=== PATIENT | male | born 1935 | race Hispanic/Latino ===

== ENCOUNTER 2017-11-09 09:49 | Emergency (ER) | payer OTHER ==
[2017-11-09 09:56] VITALS: TEMP 98.6; BMI 18.1
[2017-11-09] MEDS ORDERED: Morphine 2 mg/ml ISec IVP STA ×2 (10:07→11:53)
--- NOTE | 2017-11-09 11:27 | ED PDOC ---
Arrival/HPI - General Chief Complaint: Trauma Time Seen by Provider: 11/09/17 10:00 Historian: Patient - History of Present Illness Narrative History of Present Illness (Text): 11/09/17 11:00 82 male, with no significant PMH, who presents to the emergency department complaining of right shoulder pain s/p mechanical fall since prior to arrival. Patient reports coming out off cruise and as he was pulling his luggage, patient fell forward, with outstretched arm injuring his right shoulder. Patient notes hitting his head and has a small right eyebrow cut. Patient denies LOC, headache, chest pain, shortness of breath, nausea, vomiting, diarrhea, numbness or tingling to the extremities. Pt denies neck or back pain. Additionally, patient notes right shoulder pain being 10 out 10 and radiating down right arm. Time/Duration: Prior to Arrival Symptom Onset: Sudden Symptom Course: Unchanged Context: Slipped Past Medical History - Provider Review Nursing Documentation Reviewed: Yes - Infectious Disease Hx of Infectious Diseases: None - Psychiatric Hx Substance Use: No - Surgical History Hx Orthopedic Surgery: Yes (hip replacement) - Anesthesia Hx Anesthesia: Yes Hx Anesthesia Reactions: No Hx Malignant Hyperthermia: No Family/Social History - Physician Review Nursing Documentation Reviewed: Yes Family/Social History: Unknown Family HX Smoking Status: Never Smoked Hx Alcohol Use: Yes Frequency of alcohol use: Socially Hx Substance Use: No Allergies/Home Meds Allergies/Adverse Reactions: Allergies No Known Allergies Allergy (Verified 11/09/17 10:06) Home Medications: Home Meds Medication Instructions Recorded Confirmed No Known Home Med 11/09/17 11/09/17 Review of Systems - Review of Systems Constitutional: absent: Fevers ENT: absent: Sinus Congestion Respiratory: absent: SOB, Cough Cardiovascular: absent: Chest Pain, Palpitations Gastrointestinal: absent: Abdominal Pain, Diarrhea, Nausea, Vomiting Genitourinary Male: absent: Dysuria, Urinary Output Changes Musculoskeletal: Other (right shoulder pain ). absent: Back Pain, Neck Pain Skin: Laceration. absent: Rash, Pruritis Neurological: absent: Headache, Dizziness, Gait Changes, Speech Changes Psychiatric: absent: Anxiety, Depression Physical Exam Vital Signs Reviewed: Yes Vital Signs Temp Pulse Resp BP Pulse Ox 11/09/17 12:43 64 18 178/77 H 100 11/09/17 09:52 98.6 F 62 16 178/84 H 99 11/09/17 09:50 97.8 F 62 18 174/100 H 100 Temperature: Afebrile Blood Pressure: Hypertensive Pulse: Regular Respiratory Rate: Normal Appearance: Positive for: Well-Appearing, Non-Toxic, Uncomfortable Pain Distress: None Mental Status: Positive for: Alert and Oriented X 3 - Systems Exam Head: Present: Atraumatic, Normocephalic, Laceration (small 1cm linear superficial laceration lateral aspect right eyebrow.no creptus no step offs. ) Pupils: Present: PERRL Extroacular Muscles: Present: EOMI Conjunctiva: Present: Normal Mouth: Present: Moist Mucous Membranes Neck: Present: Normal Range of Motion, Trachea Midline. No: MIDLINE TENDERNESS , Paraspinal Tenderness Respiratory/Chest: Present: Clear to Auscultation, Good Air Exchange. No: Respiratory Distress, Accessory Muscle Use, Wheezes, Decreased Breath Sounds, Rales, Retracting, Rhonchi Cardiovascular: Present: Regular Rate and Rhythm, Normal S1, S2. No: Murmurs Abdomen: Present: Normal Bowel Sounds. No: Tenderness, Distention, Peritoneal Signs, Rebound, Guarding Back: Present: Normal Inspection. No: Midline Tenderness, Paraspinal Tenderness Upper Extremity: Present: NORMAL PULSES, Tenderness, Neurovascularly Intact, Capillary Refill < 2s, Deformity (right shoulder ), Other (no tenderness on humerus or forearm). No: Edema, Normal ROM (limited ROM right shoulder ), Swelling Lower Extremity: Present: Normal Inspection, Normal ROM. No: Tenderness Neurological: Present: GCS=15, Speech Normal, Gait Normal Skin: Present: Warm, Dry, Normal Color Psychiatric: Present: Alert, Oriented x 3, Normal Insight, Normal Concentration Medical Decision Making ED Course and Treatment: 11/09/17 11:33 82 y/o male with deformity on right shoulder with limited ROM and 1cm laceration on lateral aspect of right eyebrow complaining of right shoulder pain s/p mechanical fall. Plan: -- CT head -- Morphine and Zofran -- Right shoulder x-ray -- Reassess and disposition Progress Notes: pt refused cervical spine Ct and head ct. xray right shoulder; FINDINGS: There is a complete anterior inferior dislocation of the humeral head. There is no evidence of fracture IMPRESSION: Right shoulder dislocation tetanus updated Wound cleaned and irrigated using high-pressure irrigation Laceration repair with Dermabond pt now agrees to head ct. head CT; FINDINGS: HEMORRHAGE: No intracranial hemorrhage. BRAIN: No mass effect or edema. Chronic microvascular changes are seen in the periventricular white matter. No acute findings VENTRICLES: Unremarkable. No hydrocephalus. CALVARIUM: Unremarkable. PARANASAL SINUSES: Unremarkable as visualized. No significant inflammatory changes. MASTOID AIR CELLS: Unremarkable as visualized. No inflammatory changes. OTHER FINDINGS: None. IMPRESSION: No acute findings case discussed with dr. dubose; wants consult with dr. glez. case discussed with dr. glez; he will come to bedside. 11/09/17 12:11 dr. glez at bedside; shoulder reduction performed. sling applied. reduction xrays; FINDINGS: There has been successful reduction of the right shoulder dislocation. The shoulder is in normal position. There is no fracture IMPRESSION: Successful reduction Patient reassessment: Patient is feeling better. Denies any pain in the shoulder. Denies numbness weakness or tingling in the extremities. Patient was advised to follow-up with his primary care physician follow-up with the orthopedist within the next 2 days. Patient was advised to keep the wound clean and dry. Patient was advised to return if signs of head injury develop or if signs of infection develop. Patient was advised to return if any other concerning symptoms develop Patient verbalizes understanding of discharge instructions and need for immediate followup. all aspects of this case were discussed the attending of record. impression; laceration, face, head injury, shoulder dislocation Increase fluids Follow up with the orthopedist within the next 2 days Use shoulder immobilizer Return immediately if symptoms worsen,persist or if new symptoms develop Return immediately if signs of head injury develop: headaches, dizziness, weakness or changes in behavior or mental status Return immediately if signs of infection develop: High fevers, increasing redness, increasing swelling, purulent discharge or if any other concerning symptoms develop. Reassessment Condition: Re-examined, Improved - RAD Interpretation Radiology Orders: 11/09/17 10:06 SHOULDER RIGHT [RAD] Stat 11/09/17 11:08 HEAD W/O CONTRAST [CT] Stat 11/09/17 12:18 SHOULDER RIGHT [RAD] Stat Aircraft Dispatcher: Radiologist - Medication Orders Current Medication Orders: Discontinued Medications Morphine Sulfate (Morphine) 1 mg IVP STAT STA Stop: 11/09/17 10:08 Last Admin: 11/09/17 10:31 Dose: 1 mg MAR Pain Assessment Document 11/09/17 10:31 GMD (Rec: 11/09/17 10:31 GMD [id number]) Pain Reassessment Is this a pain reassessment? No IVP Administration Document 11/09/17 10:31 GMD (Rec: 11/09/17 10:31 GMD [id number]) Charges for Administration # of IVP Administrations 1 Morphine Sulfate (Morphine) 2 mg IVP STAT STA Stop: 11/09/17 11:54 Last Admin: 11/09/17 12:36 Dose: Not Given Non-Admin Reason: Patient Refused Ondansetron HCl (Zofran Inj) 4 mg IVP STAT STA Stop: 11/09/17 10:08 Last Admin: 11/09/17 10:31 Dose: 4 mg IVP Administration Document 11/09/17 10:31 GMD (Rec: 11/09/17 10:31 GMD [id number]) Charges for Administration # of IVP Administrations 1 Tetanus/Reduced Diphtheria/Acell Pertussis (Boostrix Vaccine Inj) 0.5 ml IM .ONCE ONE Stop: 11/09/17 11:54 Last Admin: 11/09/17 12:54 Dose: 0.5 ml Immunization Registry Document 11/09/17 12:54 GMD (Rec: 11/09/17 12:54 GMD [id number]) Immunization Registry Consent Date 11/09/17 Procedure: Wound Repair - Procedure Procedure: Wound Repair: laceration, lateral aspect of right eyebrow - Performed by Performed by: Mid-level Provider - Indications Indication(s):: Laceration - Location Shape:: Linear (1cm) Depth:: Epidermis - Debris Debris:: None - Irrigated Irrigated with ml of normal saline: copious amounts of NS using high pressure irrigation - Complexity Complexity:: Simple (one layer) - Wound repair method Tisha:: Tissue glue - Complications Complications: none - Patient tolerated procedure Patient Tolerated Procedure:: Well - Scribe Statement The provider has reviewed the documentation as recorded by the Scribe Soumya Rose Provider Scribe Attestation: All medical record entries made by the Scribe were at my direction and personally dictated by me. I have reviewed the chart and agree that the record accurately reflects my personal performance of the history, physical exam, medical decision making, and the department course for this patient. I have also personally directed, reviewed, and agree with the discharge instructions and disposition. Disposition/Present on Arrival - Present on Arrival Any Indicators Present on Arrival: No History of DVT/PE: No History of Uncontrolled Diabetes: No Urinary Catheter: No History of Decub. Ulcer: No History Surgical Site Infection Following: None - Disposition Have Diagnosis and Disposition been Completed?: Yes Diagnosis: Head injury, Shoulder dislocation, Laceration of face Disposition: HOME/ ROUTINE Disposition Time: 12:58 Patient Plan: Discharge Condition: GOOD Discharge Instructions (ExitCare): Shoulder Dislocation, Laceration Repair With Glue (DC), Closed Head Injury (DC) Additional Instructions: Increase fluids Follow up with the orthopedist within the next 2 days Use shoulder immobilizer Return immediately if symptoms worsen,persist or if new symptoms develop Return immediately if signs of head injury develop: headaches, dizziness, weakness or changes in behavior or mental status Return immediately if signs of infection develop: High fevers, increasing redness, increasing swelling, purulent discharge `` ` Referrals: Nacho Glez DO [Staff Provider] - Follow up with primary Mari Camacho MD [Staff Provider] - Follow up with primary [facility] [Outside] - Follow up with primary Forms: [employer] ([employer])
[2017-11-09] MEDS ORDERED: TDAP Vaccine 0.5 mL Syr IM ONE (11:53)
[2017-11-09] MEDS ORDERED: Lidocaine 1% Inj (20ml) ONE (12:05)
--- NOTE | 2017-11-09 12:12 | CT ---
Date of service: 11/09/2017 PROCEDURE: CT HEAD WITHOUT CONTRAST. HISTORY: head injury COMPARISON: None available. TECHNIQUE: Axial computed tomography images were obtained through the head/brain without intravenous contrast. Radiation dose: Total exam DLP = 805 mGy-cm. This CT exam was performed using one or more of the following dose reduction techniques: Automated exposure control, adjustment of the mA and/or kV according to patient size, and/or use of iterative reconstruction technique. FINDINGS: HEMORRHAGE: No intracranial hemorrhage. BRAIN: No mass effect or edema. Chronic microvascular changes are seen in the periventricular white matter. No acute findings VENTRICLES: Unremarkable. No hydrocephalus. CALVARIUM: Unremarkable. PARANASAL SINUSES: Unremarkable as visualized. No significant inflammatory changes. MASTOID AIR CELLS: Unremarkable as visualized. No inflammatory changes. OTHER FINDINGS: None. IMPRESSION: No acute findings
--- NOTE | 2017-11-09 12:39 | RAD ---
Date of service: 11/09/2017 PROCEDURE: Right shoulder HISTORY: shoulder pain/ fall COMPARISON: TECHNIQUE: Three views FINDINGS: There is a complete anterior inferior dislocation of the humeral head. There is no evidence of fracture IMPRESSION: Right shoulder dislocation
[2017-11-09 12:43] VITALS: BP 178/77; PULSE 64; RESP 18; O2SAT 100
--- NOTE | 2017-11-09 12:45 | RAD ---
Date of service: 11/09/2017 PROCEDURE: Right shoulder HISTORY: post reduction COMPARISON: Earlier same day TECHNIQUE: Two views FINDINGS: There has been successful reduction of the right shoulder dislocation. The shoulder is in normal position. There is no fracture IMPRESSION: Successful reduction
--- NOTE | 2017-11-09 22:08 | CON ---
DATE: 11/09/2017 ORTHOPEDIC CONSULT AND PROCEDURE REPORT HISTORY OF PRESENT ILLNESS: An 82-year-old male seen in the Emergency Room of [facility] with anterior dislocation of the right shoulder for its recurrence. This happened this morning on 11/09/2017 about 9 o' clock in the morning when he was getting off the cruise line where he took on a celebrity cruise boat [place] and while he was on the outside of the boat, he fell on a slippery floor getting out with his luggage and the right shoulder was found to be dislocated when he came to [facility]. We did a hematoma block and got a good reduction of the right shoulder. Postreduction x-rays show a well-positioned right shoulder, no neurologic deficits, has good pulses, and we put him in a shoulder sling with instructions of keeping the arm at the side for 2 to 3 weeks and follow up with a doctor in [place] as he lives in [place] and he is going today by a car, someone else is going to drive the car, he was instructed to keep the shoulder in the sling for 2 to 3 weeks. FINAL DIAGNOSES: Anterior dislocation of his shoulder and procedure lopes that we did a close reduction with a hematoma block and got a good reduction. Nacho Torres DO
== END 2017-11-09 13:17 | disposition home or self-care (01) ==
LOC: ED 09:49
DX: S01.111A Laceration without foreign body of right eyelid and periocular area, initial encounter (principal); S43.004A Unspecified dislocation of right shoulder joint, initial encounter; W01.0XXA Fall on same level from slipping, tripping and stumbling without subsequent striking against object, initial encounter; Y92.89 Other specified places as the place of occurrence of the external cause; Z23 Encounter for immunization
CPT/HCPCS: 12011; 23650; 70450; 73030; 90471; 90715; 96374; 96375; 99285; J2270; J2405